=== PATIENT | female | born 1975 | race Caucasian/White ===

== ENCOUNTER 2016-11-23 18:36 | Emergency (ER) | payer OTHER, MEDICARE | END 2016-11-23 23:55 | disposition home or self-care (01) | LOC: ER 18:36 | DX: R10.9 Unspecified abdominal pain (principal); R19.7 Diarrhea, unspecified; F31.9 Bipolar disorder, unspecified; F17.210 Nicotine dependence, cigarettes, uncomplicated; Z79.899 Other long term (current) drug therapy; Z88.0 Allergy status to penicillin | CPT/HCPCS: 36415; 96361; 96374; Q9963; Q9967 ==